=== PATIENT | female | born 1990 | race Caucasian/White ===

== ENCOUNTER → 2016-09-08 | Outpatient (CLI) | payer BC ==
[~2016-09-08] MED LIST: ALDACTONE50 M1 PO; METFORMIN1000 MG PO; NORTRIPTYLINE10 MG PO
[2016-09-08 12:20] LABS: FREE T4 0.92 ng/dl (0.76-1.46)
[2016-09-08 12:25] LABS: THYROID STIM HORMONE (HS) 1.13 uIU/ml (0.358-4.75)
[2016-09-09 06:11] LABS: FREE T3 010389 2.9 pg/mL (2.0-4.4); THYROID PEROXIDASE (TPO) AB 22 IU/mL (0-34)
[2016-09-09 15:06] LABS: THYROGLOBULIN ANTIBODY <1.0 IU/mL (0.0-0.9)
== END | disposition home or self-care (01) ==
LOC: RESCLI 03:55 → LAB 03:55 → RESCLI 08:11
PROVIDERS: Internal Medicine
DX: E04.9 Nontoxic goiter, unspecified (principal)

== ENCOUNTER → 2016-09-11 | Outpatient (CLI) | payer BC | END | disposition home or self-care (01) | LOC: US 04:06 | DX: E04.9 Nontoxic goiter, unspecified (principal) ==

== ENCOUNTER → 2016-09-15 | Outpatient (CLI) | payer BC | END | disposition home or self-care (01) | LOC: RESCLI 02:04 | DX: G43.909 Migraine, unspecified, not intractable, without status migrainosus (principal); E04.9 Nontoxic goiter, unspecified; F32.9 Major depressive disorder, single episode, unspecified ==